=== PATIENT | female | born 2000 | race Two or more races ===

== ENCOUNTER → 2021-03-13 08:09 | Outpatient (CLI) | payer OTHER | END | disposition home or self-care (01) | LOC: PPH VACUNA 08:09 | DX: Z23 Encounter for immunization (principal) ==

== ENCOUNTER 2021-04-03 08:00 | Outpatient (CLI) | payer OTHER | END 2021-04-03 08:30 | disposition home or self-care (01) | LOC: PPH VACUNA 08:00 | DX: Z23 Encounter for immunization (principal) ==

== ENCOUNTER → 2025-03-13 | Emergency (ER) | payer OTHER | END | disposition home or self-care (01) | LOC: ER 12:45 → MEDI 03-23 12:41 → EDSTATUS 03-23 12:45 | DX: H10.89 Other conjunctivitis (principal) ==